=== PATIENT | female | born 2000 | race Two or more races ===

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

== ENCOUNTER 2019-01-09 12:27 | Emergency (ER) | payer OTHER ==
[~2019-01-09] VITALS: Ht 149.9 cm; Wt 55.8 kg
[2019-01-09] MEDS ORDERED: PRENATAL + DHA1 EAC1 (12:39)
[2019-01-09] MEDS ORDERED: FOLIC ACID0.8 M1 (12:40)
== END 2019-01-09 15:53 | disposition home or self-care (01) ==
LOC: ER 12:27
DX: O26.892 Other specified pregnancy related conditions, second trimester (principal); J03.80 Acute tonsillitis due to other specified organisms; Z34.02 Encounter for supervision of normal first pregnancy, second trimester

== ENCOUNTER 2019-02-09 21:46 | Emergency (ER) | payer OTHER ==
[~2019-02-09] VITALS: Ht 149.9 cm; Wt 57.2 kg
[~2019-02-09 21:46] MED LIST changes: +FOLIC ACID0.8 M1; +PRENATAL + DHA1 EAC1
== END 2019-02-09 22:42 | disposition home or self-care (01) ==
LOC: ER 21:46
DX: O26.892 Other specified pregnancy related conditions, second trimester (principal); L73.8 Other specified follicular disorders; Z34.02 Encounter for supervision of normal first pregnancy, second trimester